=== PATIENT | female | born 1965 | race Two or more races ===

== ENCOUNTER 2021-07-17 19:54 | Emergency (ER) | payer MEDICAID ==
[~2021-07-17] VITALS: Ht 172.7 cm; Wt 77.1 kg
[2021-07-17] MEDS ORDERED: KETOROLAC TROMETH 60MG/2ML VIAL IM ONE (20:30)
[2021-07-17 22:20] VITALS: BP 139/68
== END 2021-07-17 23:13 | disposition home or self-care (01) ==
LOC: EDBD 19:54 → ER 19:56
DX: M54.2 Cervicalgia (principal); M79.18 Myalgia, other site; W18.39XA Other fall on same level, initial encounter; Y93.89 Activity, other specified; Y92.89 Other specified places as the place of occurrence of the external cause; Y99.8 Other external cause status
CPT/HCPCS: 70450; 71045; 72125; 73030; 73502; 96372; 99284; J1885

== ENCOUNTER 2021-10-12 23:37 | Emergency (ER) | payer MEDICAID ==
[~2021-10-12] VITALS: Ht 172.7 cm; Wt 78.0 kg
[2021-10-12 23:38] VITALS: BP 123/76
[2021-10-13] MEDS ORDERED: OXYCODONE W/ ACETAMINOPHEN 5/325MG TABLET PO ONE (03:15)
[2021-10-13] MEDS ORDERED: methylPREDNISolone SOD SUCC 125 MG/2 ML VL IM ONE (03:15)
== END 2021-10-13 03:33 | disposition home or self-care (01) ==
LOC: ER 23:37
DX: S33.5XXA Sprain of ligaments of lumbar spine, initial encounter (principal); G89.29 Other chronic pain; X58.XXXA Exposure to other specified factors, initial encounter; Y93.89 Activity, other specified; Y92.89 Other specified places as the place of occurrence of the external cause; Y99.8 Other external cause status
CPT/HCPCS: 96372; 99283; J2930

== ENCOUNTER 2021-10-28 13:00 | Emergency (ER) | payer MEDICAID ==
[~2021-10-28] VITALS: Ht 172.7 cm; Wt 76.0 kg
[2021-10-28 15:37] VITALS: BP 137/77
[2021-10-28] MEDS ORDERED: ACETAMINOPHEN 325 MG TAB PO ONE (16:15)
[2021-10-28] MEDS ORDERED: ACET-1158 PO (17:04)
== END 2021-10-28 17:19 | disposition home or self-care (01) ==
LOC: ER 13:00
DX: S46.912A Strain of unspecified muscle, fascia and tendon at shoulder and upper arm level, left arm, initial encounter (principal); S83.91XA Sprain of unspecified site of right knee, initial encounter; S00.83XA Contusion of other part of head, initial encounter; Y04.2XXA Assault by strike against or bumped into by another person, initial encounter; Y93.89 Activity, other specified; Y92.89 Other specified places as the place of occurrence of the external cause; Y99.8 Other external cause status
CPT/HCPCS: 29505; 70450; 70486; 73030; 73560

== ENCOUNTER 2021-11-29 00:43 | Emergency (ER) | payer MEDICAID ==
[~2021-11-29] VITALS: Ht 172.7 cm; Wt 81.8 kg
[~2021-11-29 00:43] MED LIST: ACET-1158 PO
[2021-11-29 01:57] LABS: Eosinophils # (auto) 0.1 10 ^3/uL (0-0.8); Eosinophils % (auto) 2.4 % (0.0-7.0); Mean Corpuscular Hemoglobin 26.9 pg (28.0-32.0); Mean Corpuscular Volume 80.4 fL (80.0-100.0)
[2021-11-29 01:59] LABS: Basophils # (auto) 0 10 ^3/uL (0-0.2); Hematocrit 36.7 % (36.0-46.0); Hemoglobin 12.3 g/dL (12.2-16.2); Lymphocytes # (auto) 2.7 10 ^3/uL (0.4-5.4); Mean Corpuscular Hgb Conc. 33.4 g/dL (32.0-36.0); Monocytes # (auto) 0.4 10 ^3/uL (0-1.3); Monocytes % (auto) 7.4 % (0.0-12.0); Neutrophils # (auto) 1.7 10 ^3/uL (1.6-8.6); Neutrophils % (auto) 34.2 % (37.0-80.0); Nucleated Red Blood Cells % 0.2 %; Red Blood Cells 4.56 10^6/uL (4.0-5.20); Red Cell Distribution Width 13.8 % (11.8-14.3); White Blood Cell 4.9 10^3/uL (4.4-10.8)
[2021-11-29 02:09] LABS: Albumin 3.4 g/dL (3.4-5.0); BUN/Creatinine Ratio 10.3; Calcium 8.7 mg/dL (8.5-10.1); Potassium 3.9 mmol/L (3.5-5.1)
[2021-11-29 02:12] LABS: Bilirubin, Total 0.2 mg/dL (0.2-1.0); Total Protein 6.1 g/dL (6.4-8.2)
[2021-11-29] MEDS ORDERED: ALBUTEROL SULF 2.5 MG/0.5ML(0.5%) NEB SOLN NEB ONE (02:15)
[2021-11-29] MEDS ORDERED: AZIT250T9 PO (02:26)
[2021-11-29] MEDS ORDERED: AZITHROMYCIN 250 MG TAB PO ONE (02:30)
[2021-11-29] MEDS ORDERED: ALBUAER3 IN (02:56)
[2021-11-29 03:23] VITALS: BP 163/65
== END 2021-11-29 03:25 | disposition home or self-care (01) ==
LOC: ER 00:46
DX: J40 Bronchitis, not specified as acute or chronic (principal)
CPT/HCPCS: 36415; 71045; 80053; 83880; 84484; 85025; 93005; 94640

== ENCOUNTER 2022-10-11 18:16 | Emergency (ER) | payer OTHER, MEDICAID ==
[~2022-10-11] VITALS: Ht 172.7 cm; Wt 86.7 kg
[~2022-10-11 18:16] MED LIST changes: -ACET-1158 PO; +ACET500T58 PO; +ALBUAER3 IN; +AZIT-43 PO
[2022-10-11] MEDS ORDERED: IBUP1TAB5 PO (22:37)
[2022-10-11] MEDS ORDERED: CYCL-839 PO (22:37)
[2022-10-11 23:53] VITALS: BP 155/56; PULSE 76; RESP 18; TEMP 98.2; O2SAT 98
== END 2022-10-11 23:55 | disposition home or self-care (01) ==
LOC: ER 18:16
DX: S13.9XXA Sprain of joints and ligaments of unspecified parts of neck, initial encounter (principal); S33.5XXA Sprain of ligaments of lumbar spine, initial encounter; S20.219A Contusion of unspecified front wall of thorax, initial encounter; S09.8XXA Other specified injuries of head, initial encounter; M50.30 Other cervical disc degeneration, unspecified cervical region; V43.52XA Car driver injured in collision with other type car in traffic accident, initial encounter; Y93.89 Activity, other specified; Y92.89 Other specified places as the place of occurrence of the external cause; Y99.8 Other external cause status
CPT/HCPCS: 70450; 71250; 72125; 74176